=== PATIENT | male | born 1995 | race African-American/Black ===

== ENCOUNTER 2022-02-13 15:20 | Emergency (ER) | payer SELFPAY ==
[2022-02-13] MEDS ORDERED: Lidocaine 2% PF 5 ML VIAL ONE (15:43)
[2022-02-13] MEDS ORDERED: Ondansetron ODT 4 MG TAB ONE (16:02)
[2022-02-13] MEDS ORDERED: Bacitracin 1 PK ONE (16:15)
== END 2022-02-13 16:23 | disposition home or self-care (01) ==
LOC: BURERS 15:20
DX: S61.012A Laceration without foreign body of left thumb without damage to nail, initial encounter (principal); F17.210 Nicotine dependence, cigarettes, uncomplicated; W26.8XXA Contact with other sharp object(s), not elsewhere classified, initial encounter; Y92.89 Other specified places as the place of occurrence of the external cause; Y99.0 Civilian activity done for income or pay
CPT/HCPCS: 12001; J2001; Q0162